=== PATIENT | female | born 1975 | race Caucasian/White ===

== ENCOUNTER 2018-04-09 06:33 | Emergency (ER) | payer BC ==
[~2018-04-09] VITALS: Ht 172.7 cm; Wt 96.2 kg
--- NOTE | 2018-04-09 06:45 | NUR ---
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 HS OF KIDNEY STONES. PT AOX4. PT ON MONITOR IN BED 1 WITH FRIEND AT BEDSIDE. WILL CONTINUE TO MONITOR.
--- NOTE | 2018-04-09 06:46 | NUR ---
URINE COLLECTED AND SENT TO LAB
[2018-04-09] MEDS ORDERED: KETOROLAC TROMETHAMINE 15 MG/ML VIAL ONE (07:10)
[2018-04-09] MEDS ORDERED: ONDANSETRON HCL/PF 4 MG/2 ML VIAL ONE ×2 (07:10→09:09)
--- NOTE | 2018-04-09 07:14 | NUR ---
LABS DRAWN AND SENT TO LAB
[2018-04-09 07:27] LABS: BASOPHILS # (AUTO) 0.1 /CMM (0.0-0.2); BASOPHILS % (AUTO) 0.8 % (0.0-2.0); HEMATOCRIT 44 % (33-45); HEMOGLOBIN 14.9 g/dL (11.5-14.8); LYMPHOCYTES # (AUTO) 2.3 /CMM (0.8-4.8); LYMPHOCYTES % (AUTO) 32.3 % (20.0-44.0); MEAN CORPUSCULAR HGB CONC 34 g/dl (31.0-36.0); MEAN CORPUSCULAR VOLUME 92 fL (82-100); MONOCYTES # (AUTO) 0.4 /CMM (0.1-1.30); NEUTROPHILS # (AUTO) 3.8 /CMM (1.8-8.9); NEUTROPHILS % (AUTO) 52.9 % (43.0-81.0); PLATELET COUNT (AUTO) 300 /CMM (150-450); RED BLOOD CELL COUNT(AUTO) 4.78 MIL/uL (4.0-5.2); WHITE BLOOD COUNT (AUTO) 7.1 K/uL (4.3-11.0)
[2018-04-09 07:28] LABS: APPEARANCE,URINE SL CLOUDY (CLEAR); BILIRUBIN,URINE NEGATIVE (NEGATIVE); BLOOD, URINE 3+ Ery/uL (NEGATIVE); COLOR,URINE RED (YELLOW); KETONES,URINE NEGATIVE (NEGATIVE); LEUKOCYTE ESTERASE ,URINE NEGATIVE (NEGATIVE); NITRITE, URINE NEGATIVE (NEGATIVE); PH,URINE 7.5 (5.0-8.0); PROTEIN,URINE TRACE mg/dl (NEGATIVE); UGLUCOSE NEGATIVE (NEGATIVE); UROBILINOGEN,URINE 0.2 EU/dL (0.2)
[2018-04-09] MEDS ORDERED: KETOROLAC TROMETHAMINE INJ 30 MG/ML VIAL IV ONE (07:30)
[2018-04-09] MEDS ORDERED: ONDANSETRON HCL/PF 4 MG/2 ML VIAL IVP ONE (07:30)
[2018-04-09] MEDS ORDERED: MORPHINE SULFATE INJ 2 MG/ML DISP.SYRIN IV ONE (07:30)
[2018-04-09] MEDS ORDERED: IV NS 0.9% 500 ML BAG IV ONE (07:30)
--- NOTE | 2018-04-09 07:30 | NUR ---
RECEIVED CARE OF PATIENT.
--- NOTE | 2018-04-09 07:30 | NUR ---
REPORT GIVEN TO YVONNE CARRERO FOR KARSTEN
[2018-04-09 07:42] LABS: CALCIUM, SERUM 8.9 mg/dL (8.5-10.1); CREATININE 0.7 mg/dL (0.6-1.3); POTASSIUM 3.4 mmol/L (3.5-5.1)
--- NOTE | 2018-04-09 07:44 | NUR ---
PATIENT STATES RELEIF FROM NAUSEA AND ABD PAIN. TAKEN TO CT STABLE
--- NOTE | 2018-04-09 07:53 | NUR ---
PATIENT RETURNED FROM CT STABLE.
[2018-04-09] MEDS ORDERED: HYDROMORPHONE 1 MG/1 ML DISP.SYRIN IV ONE ×2 (08:00→09:30)
[2018-04-09] MEDS ORDERED: HYDROMORPHONE INJ 2 MG/ML DISP.SYRIN ONE ×2 (08:06→09:09)
[2018-04-09 08:07] LABS: BACTERIA,URINE None seen /HPF (None Seen); RBC,URINE TOO NUMEROUS TO COUN /HPF (0-2); SQUAMOUS EPITHELIAL CELL,UR Rare /HPF (None Seen); WBC,URINE NONE SEEN /HPF (0-3)
[2018-04-09 09:07] VITALS: BP 125/86
--- NOTE | 2018-04-09 09:22 | NUR ---
Patient discharged to home in stable condition. Written and verbal after care instructions given. Patient verbalizes understanding of instruction. IV removed. Catheter intact and site benign. Pressure and 4x4 applied to site. No bleeding noted. DROVE PATIENT HOME. STABLE
[2018-04-09] MEDS ORDERED: ONDANSETRON HCL/PF 4 MG/2 ML VIAL IV ONE (09:30)
== END 2018-04-09 09:21 | disposition home or self-care (01) ==
LOC: ER 06:38
DX: N20.0 Calculus of kidney (principal); M46.97 Unspecified inflammatory spondylopathy, lumbosacral region
CPT/HCPCS: 36415; 80048-TC; 81000-TC; 84703-TC; 85025-TC; 87086-TC; J1170; J1885; J2405; J7040

== ENCOUNTER 2018-04-11 09:28 | Emergency (ER) | payer BC ==
[~2018-04-11] VITALS: Ht 172.7 cm; Wt 97.5 kg
--- NOTE | 2018-04-11 09:46 | NUR ---
INITIAL CONTACT WITH PT MILDLY DISTRESS DUE TO RIGHT FLANK PAIN X 3 HRS WITH NAUSEA. PLACED IN BED AND IV STARTED , BLOOD DRAWN, URINE SAMPLE OBTAINED WAITING FOR MD LEVY.
[2018-04-11] MEDS ORDERED: KETOROLAC TROMETHAMINE 15 MG/ML VIAL ONE (09:59)
[2018-04-11] MEDS ORDERED: ONDANSETRON HCL/PF 4 MG/2 ML VIAL ONE (09:59)
[2018-04-11] MEDS ORDERED: HYDROMORPHONE INJ 0.5 MG/0.5 ML SYRINGE ONE (10:00)
[2018-04-11 10:03] LABS: BASOPHILS % (AUTO) 0.4 % (0.0-2.0); EOSINOPHILS % (AUTO) 0.2 % (0.0-6.0); HEMATOCRIT 43 % (33-45); HEMOGLOBIN 14.5 g/dL (11.5-14.8); LYMPHOCYTES # (AUTO) 1.1 /CMM (0.8-4.8); LYMPHOCYTES % (AUTO) 7.9 % (20.0-44.0); MEAN CORPUSCULAR HGB CONC 34 g/dl (31.0-36.0); MEAN CORPUSCULAR VOLUME 92 fL (82-100); MONOCYTES # (AUTO) 0.7 /CMM (0.1-1.30); MONOCYTES % (AUTO) 4.8 % (2.0-12.0); NEUTROPHILS % (AUTO) 86.7 % (43.0-81.0); PLATELET COUNT (AUTO) 332 /CMM (150-450); RED BLOOD CELL COUNT(AUTO) 4.67 MIL/uL (4.0-5.2); WHITE BLOOD COUNT (AUTO) 13.8 K/uL (4.3-11.0)
[2018-04-11] MEDS: IV NS 0.9% 1,000 ML BAG IV ONE (10:05)
[2018-04-11] MEDS: HYDROMORPHONE INJ 2 MG/ML DISP.SYRIN IV ONE (10:05)
[2018-04-11] MEDS: KETOROLAC TROMETHAMINE INJ 30 MG/ML VIAL IV ONE (10:05)
[2018-04-11] MEDS: ONDANSETRON HCL/PF 4 MG/2 ML VIAL IVP ONE (10:06)
--- NOTE | 2018-04-11 10:06 | NUR ---
TECH AT BEDSIDE FOR US.
[2018-04-11 10:08] LABS: APPEARANCE,URINE Clear (CLEAR); BILIRUBIN,URINE Negative (NEGATIVE); BLOOD, URINE Large Ery/uL (NEGATIVE); COLOR,URINE Yellow (YELLOW); KETONES,URINE 80 (NEGATIVE); LEUKOCYTE ESTERASE ,URINE Negative (NEGATIVE); NITRITE, URINE Negative (NEGATIVE); PROTEIN,URINE Negative (NEGATIVE); UGLUCOSE 100 MG/DL mg/dL (NEGATIVE); UROBILINOGEN,URINE 0.2 EU/dL (0.2)
[2018-04-11 10:11] LABS: BACTERIA,URINE Few /HPF (None Seen)
[2018-04-11 10:12] LABS: SQUAMOUS EPITHELIAL CELL,UR Few /HPF (None Seen)
[2018-04-11 10:13] LABS: POTASSIUM 3.8 mmol/L (3.5-5.1)
[2018-04-11 10:15] LABS: CREATININE 0.9 mg/dL (0.6-1.3)
[2018-04-11 10:20] LABS: ALBUMIN 4.1 g/dL (3.4-5.0); BILIRUBIN,DIRECT 0.2 mg/dL (0.0-0.2); BILIRUBIN,TOTAL 0.9 mg/dL (0.2-1.0); TOTAL PROTEIN, SERUM 8.2 g/dL (6.4-8.2)
--- NOTE | 2018-04-11 10:30 | NUR ---
PT SLEEPING AT PRESENT
--- NOTE | 2018-04-11 11:18 | NUR ---
DR RASMUSSEN REEVAL PT
--- NOTE | 2018-04-11 11:58 | NUR ---
SALINE LOCK DC DRESSING PLACED
[2018-04-11 11:59] VITALS: BP 127/74
== END 2018-04-11 12:01 | disposition home or self-care (01) ==
LOC: ER 09:29
DX: N20.0 Calculus of kidney (principal); R11.2 Nausea with vomiting, unspecified
CPT/HCPCS: 36415; 76770-TC; 80048-TC; 80076-TC; 81000-TC; 83690-TC; 84703-TC; 85025-TC; J1885; J2405; J7030